=== PATIENT | female | born 2000 | race Caucasian/White ===

== ENCOUNTER 2023-11-28 10:37 | Emergency (ER) | payer OTHER ==
[~2023-11-28] VITALS: Ht 165.1 cm; Wt 86.2 kg
[2023-11-28] MEDS ORDERED: TDAP [DIPH/PERTUSSIS/TET] 0.5 ML VIAL IM ONE (11:13)
[2023-11-28] MEDS: TDAP [DIPH/PERTUSSIS/TET] 0.5 ML VIAL IM ONE (11:20)
[2023-11-28 11:32] VITALS: BP 132/80; TEMP 98; O2SAT 98
== END 2023-11-28 11:46 | disposition home or self-care (01) ==
LOC: ER 10:43
DX: S01.91XA Laceration without foreign body of unspecified part of head, initial encounter (principal); W22.8XXA Striking against or struck by other objects, initial encounter; Y93.89 Activity, other specified; Y92.89 Other specified places as the place of occurrence of the external cause; Y99.8 Other external cause status
CPT/HCPCS: 99283; 90471; 90715; A6403